=== PATIENT | male | born 2000 | race Caucasian/White ===

== ENCOUNTER 2020-10-21 13:39 | Day surgery (SDC) | payer SELFPAY ==
[2020-10-21] VITALS (11 sets, daily range): BP systolic 111–144; BP diastolic 58–96; PULSE 63–93; RESP 16–20; TEMP 36.2–36.6; O2SAT 70–100; BMI 21.7
--- NOTE | 2020-10-21 13:51 | ED_ITS ---
HPI - Male Genitourinary General: Chief complaint: Urogenital-Male Stated complaint: Testicular pain Time Seen by Provider: 10/21/20 13:42 History of Present Illness: HPI Narrative: The patient is a 20-year-old male who comes to the ER complaining of right testicular pain since 12 PM. He says the right testicle is severely tender and swollen. Denies penile discharge or recent sexual activity. 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 He denies any medical problems or surgeries MD Complaint: testicle pain Onset (ago): hour(s) (2) Location: right testicle Radiation: right testicle Severity: severe Severity scale (1-10): 10 Quality: sharp Relieving factors: none Exacerbating factors: none Associated symptoms: Reports no associated symptoms Review of Systems General: Reports: 10 or more systems reviewed and unremarkable except in HPI and below Const: Denies: fatigue Eyes: Denies: change in vision, blurry vision or eye redness ENMT: Denies: throat pain, swelling of lips/tongue, ear or mastoid pain or nasal congestion Card: Denies: chest pain, palpitations, irregular heart rhythm, edema, dyspnea on exertion or orthopnea Resp: Denies: dyspnea, productive cough or non-productive cough GI: Denies: abdominal pain, diarrhea or GI cramping : Reports: testicular pain; Denies: flank pain, urinary frequency or urinary urgency Musc: Denies: neck pain, back pain, extremity pain, joint pain, joint redness, limited range of motion or muscle weakness Skin/Breast: Denies: rash, pruritus, erythema, skin pain or skin tenderness Neuro: Denies: headache(s), numbness in extremities, weakness in extremities, sensory changes, difficulty walking, dizziness, confusion or Slurred speech present Psych: Denies: anxiety or depression Endo: Denies: polyuria All/Imm: Denies: urticaria, throat swelling or tongue swelling Physical Exam Const: COMMON NORMALS: no acute distress, average body habitus, patient oriented x3, no limitations, healthy appearing, alert and well nourished GENERAL APPEARANCE: cooperative, comfortable, well kempt and well developed ORIENTATION/CONSCIOUSNESS: Yes awake, Yes oriented to person, Yes oriented to place and Yes oriented to time HENMT: COMMON NORMALS: normocephalic, external ears normal and Normal external nose present HEAD & SCALP: normal to inspection and normocephalic NOSE: Normal external nose present EXTERNAL EAR: Yes external ears normal MOUTH: Normal oral and palatal mucosa present THROAT: posterior oropharynx normal Eye: COMMON NORMALS: Equal, round and reactive pupils present and EOMs intact bilaterally GENERAL EYE: appearance normal, both eyes and all related structures PUPIL: Yes Equal, round and reactive pupils present Neck/C-Spine: COMMON NORMALS: full ROM, no lymphadenopathy, no meningeal signs and no JVD GENERAL: Yes normal visual inspection Lymph: LYMPHATIC: no lymphadenopathy noted Chest: COMMONS NORMALS: normal inspection of the chest and normal palpation of entire chest wall Resp: COMMON NORMALS: normal respiratory effort, No retractions, No use of accessory muscles, clear to auscultation bilaterally and percussion normal EFFORT & INSPECTION: Yes able to speak in complete sentences AUSCULTATION: clear to auscultation bilaterally PERCUSSION: percussion normal Cardio: COMMON NORMALS: no JVD, regular rate, regular rhythm, S1 normal heart sound present, S2 normal heart sound present and Peripheral pulses 2+ throughout RATE: regular rate RHYTHM: regular rhythm HEART SOUNDS: S1 normal heart sound present and S2 normal heart sound present PERIPHERAL PULSES: Peripheral pulses 2+ throughout GI: COMMON NORMALS: Normal to inspection, nondistended, normoactive bowel sounds present, Soft to palpation, non-tender and no masses INSPECTION: Yes normal to inspection PALPATION: Yes Soft to palpation : COMMON NORMALS: Yes no CVA tenderness BLADDER/KIDNEY EXAM: Yes no CVA tenderness PENIS: normal penis TESTES: Yes testicular swelling OTHER: Right testicle shortened and severely tender. Likely torsion. left testicle normal Back/Pelvis: COMMON NORMALS: no CVA tenderness, thoracic and lumbar spine normal to inspection, no thoracic nor lumbar tenderness and thoraco-lumbar ROM normal Extremity: COMMON NORMALS: normal to inspection, full ROM, capillary refill normal, no joint enlargement and no pedal edema GENERAL: Yes normal exam except as noted Neuro: COMMON NORMALS: patient oriented x3, CN's II-XII intact bilaterally, moves all extremities, no focal motor deficits, no sensory deficits noted and gait normal SENSORIUM/ORIENTATION: Yes alert, Yes oriented to person, Yes oriented to place and Yes oriented to time MENINGEAL SIGNS: Yes no meningeal signs Psych: COMMON NORMALS: mental status grossly normal, Normal thought process present, cooperative, normal affect and speech normal APPEARANCE: Yes well kempt ATTITUDE: Yes calm SPEECH: Yes normal speech THOUGHT PROCESS: Normal thought process present Skin: COMMON NORMALS: no rashes or lesions noted GENERAL SKIN EXAM: no rashes or lesions noted Course Vital Signs: Vital signs: Vital Signs Temperature 97.3 F L 10/21/20 13:44 Pulse Rate 72 10/21/20 14:16 Respiratory Rate 16 10/21/20 14:16 Blood Pressure 144/84 10/21/20 14:16 Pulse Oximetry 98 10/21/20 14:16 MDM - Male MDM Narrative: Medical decision making narrative: Discussed with Dr. Black who will see him in the ED. Ultrasound pending. 1402: Dr. Black saw in ED. Recommended going to surgery. Admit observation to Dr. Black direct to surgery. 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
--- NOTE | 2020-10-21 14:04 | P.HP_ITS ---
Providers/Chief Complaint Admitting Physician: Wayne Chief Complaint: HERNIA History of Present Illness JUAN C MENA is a healthy 20-year-old male who was bull riding yesterday. 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 No significant injury yesterday but when he woke up at about noon today he had acute onset of severe right testicular pain and extremely acutely abnormal lie of the testicle. Physical exam revealed a high riding testicle with horizontal orientation versus vertical with some bunching of the cord. I attempted a manual detorsion but could not get the testicle to do so. It was recommended that he go to the operating room emergently as soon as a room is available. Review of Systems Const: Denies: fever(s), chills, fatigue or malaise Eyes: Denies: change in vision or blurry vision ENMT: Denies: throat pain or mouth pain Card: Denies: chest pain, palpitations or edema Resp: Denies: dyspnea or productive cough GI: Reports: abdominal pain and nausea; Denies: vomiting : Reports: testicular pain and scrotal swelling Musc: Denies: neck pain, joint redness or joint warmth Skin/Breast: Denies: rash or new lesions Neuro: Denies: confusion, behavioral changes or Slurred speech present Psych: Reports: anxiety (Related to the acute pain); Denies: loss of interest or memory loss Endo: Denies: flushing, hot flashes or heat intolerance Rosalio/Lymph: Denies: easy bruising or easy bleeding All/Imm: Denies: urticaria or itchy eyes Medications/Allergies Home Medications Medication Instructions Recorded Confirmed Last Taken Type No Known Home Medications 10/21/20 10/21/20 Unknown History Allergies Allergy/AdvReac Type Severity Reaction Status Date / Time No Known Allergies Allergy Verified 10/21/20 13:48 PFSH PFSH: Medical History (Updated 10/21/20 @ 15:33 by Ramin Black MD) Knee injury Supplemental PFSH Information: No prior surgeries No prevalent family illnesses 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, 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, 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 Signs Vitals Signs: Last Vital Signs Temp 97.3 F L 10/21/20 13:44 Pulse 63 10/21/20 13:44 Resp 16 10/21/20 13:44 BP 144/73 10/21/20 13:44 Pulse Ox 99 10/21/20 13:44 Weight: Weight last 48 hrs Weight 160 lb Physical Exam Const: COMMON NORMALS: alert and well nourished GENERAL APPEARANCE: well kempt and well developed ORIENTATION/CONSCIOUSNESS: not confused HENMT: HEAD & SCALP: normocephalic and atraumatic Eye: COMMON NORMALS: no scleral icterus CONJUNCTIVA: Yes conjunctivae normal Neck/C-Spine: COMMON NORMALS: full ROM GENERAL: Yes normal visual inspection Lymph: LYMPHATIC: No no lymphadenopathy noted and No lymphadenopathy Resp: COMMON NORMALS: normal respiratory effort EFFORT & INSPECTION: No labored and No Actively coughing Cardio: COMMON NORMALS: no JVD, regular rate, regular rhythm and No murmurs present (Cardio) GI: COMMON NORMALS: Soft to palpation and non-tender : MALE GROIN/PERINEUM EXAM: No ecchymosis and No hernia PENIS: normal penis MEATUS: meatus normal, no meatla discharge and No Blood at meatus present TESTES: Yes high-riding testicle High-riding testicle laterality: right OTHER: Normal left testicle. Bunching of the cord above the right testicle. Very tender. Extremity: COMMON NORMALS: no clubbing, cyanosis or edema OTHER: Normal Gait Neuro: COMMON NORMALS: no focal motor deficits SENSORIUM/ORIENTATION: Yes alert Psych: COMMON NORMALS: mental status grossly normal APPEARANCE: Yes grossly normal and Yes well kempt ATTITUDE: Yes engaged Skin: COMMON NORMALS: no jaundice GENERAL SKIN EXAM: no rashes or lesions noted A&P Assessment and plan (1) Testicular torsion: Acute RIGHT testicular torsion. 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
[2020-10-21] MEDS: sodium chloride 0.9% 1,000 ML 999 ML IV (14:13)
[2020-10-21] MEDS: morphine 4 mg/mL SDV 1 mL IVP (14:14)
[2020-10-21] MEDS: ondansetron 2 mg/ML SDV 2 mL 4 MG IVP (14:15)
[2020-10-21 14:49] LABS: Alanine Aminotransferase 19 U/L (0-41); Albumin Level 4.3 g/dL (3.5-5.2); Alkaline Phosphatase 99 IU/L (40-130); Anion Gap 14.6 (5-19); Aspartate Amino Transferase 32 U/L (0-40); Basophils # 0.1 10^3/uL (0.0-0.1); Basophils % 0.7 %; Blood Urea Nitrogen 18 mg/dL (6-20); Calcium 8.7 mg/dL (8.5-10.5); Carbon Dioxide 24 mmol/L (22-29); Chloride 104 mmol/L (98-107); Creatinine Clr Calc Pharmacy 157.4792; Eosinophils # 0.2 10^3/uL (0.0-0.8); Eosinophils % 2.5 %; Globulin 2.9 g/dL (1.3-4.6); Glomerular Filtration Rate 123.2 mL/min (90-130); Glucose 111 mg/dL (65-115); Hematocrit 44.4 % (42.0-52.0); Hemoglobin 15.6 g/dL (11.7-16.6); Lymphocytes # 1.8 10^3/uL (1.5-6.5); Lymphocytes % 26.4 %; Mean Corpuscular HGB Conc 35.1 g/dL (30.0-36.0); Mean Corpuscular Hemoglobin 32.2 pg (28.0-34.0); Mean Corpuscular Volume 91.5 fL (80-94); Mean Platelet Volume 8.9 fL (7.4-10.4); Monocytes # 0.6 10^3/uL (0.2-0.9); Monocytes % 8.4 %; Neutrophils # 4.17 10^3/uL (1.8-8.0); Neutrophils % 61.7 %; Nucleated Red Blood Cells % 0 %; Osmolality Calculated 291 mOsm/kg (285-295); Platelet Count 230 10^3/cmm (130-400); Potassium 3.6 mmol/L (3.5-5.1); Red Blood Count 4.85 10^6/uL (4.1-5.3); Red Cell Distribution Width 11.8 % (12.1-15.1); Sodium 139 mmol/L (136-145); Total Bilirubin 0.5 mg/dL (0.15-1.2); Total Protein 7.2 g/dL (6.6-8.7); White Blood Count 6.8 10^3/uL (4.5-13.0)
[2020-10-21 14:50] LABS: Lactate (Lactic Acid level) 1.8 mmol/L (0.5-2.2)
--- NOTE | 2020-10-21 15:46 | P.ANESASSM_ITS ---
Pre-Anesthetic Assessment Pre-Anesthetic Assessment: Height/Weight: Height 1.83 m Weight 72.575 kg Temp Pulse Resp BP Pulse Ox 97.2 F L 70 18 111/96 70 L 10/21/20 14:49 10/21/20 14:49 10/21/20 14:49 10/21/20 14:49 10/21/20 14:49 Proposed Procedure: Operation Date: 10/21/20 16:55 Proposed Procedures p Testicular Torsion Repair, exploration with bilateral testicle fixation(Not Applicable) - Ramin Black MD Was Beta Shannon taken within 24 hours: N/A Social: Social History: Alcohol Comment: vapes Exam: Pre-Anes Outpt Exam: alert, oriented x 3, clear to auscultation bilaterally and regular rate & rhythm Airway: Submandibular: WNL Cervical ROM: WNL MP: 2 Dentition: Chipped Additional comments: front tooth chipped left History/ROS: No significant history except as noted and No significant complaints Pulmonary: Pulmonary: None reported CV/HEM: CV/HEM: None reported : : None reported Hepatic: Hepatic: None reported GI: GI: None reported Metabolic: Metabolic: None reported Musc/skel: Musc/skel: None reported Neuropsych: Neuropsych: None reported Anesthetic Plan: ASA status: 2 Anesthesia: Anesthesia Evaluation and General Risk of > 500 ml blood loss (7ml/kg in children): No PFSH Anesthesia PFSH: Medical History (Updated 10/21/20 @ 15:33 by Ramin Black MD) Knee injury Supplemental PFSH Information: No prior surgeries No prevalent family illnesses 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, 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, 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 CBC & Chem 7: 10/21/20 14:15 10/21/20 14:15 Other Labs: Laboratory Results - last 48 hr 10/21/20 10/21/20 10/21/20 14:15 14:15 14:15 WBC 6.8 RBC 4.85 Hgb 15.6 Hct 44.4 MCV 91.5 MCH 32.2 MCHC 35.1 RDW 11.8 L Plt Count 230 MPV 8.9 Neut % (Auto) 61.7 Lymph % (Auto) 26.4 [place] % (Auto) 8.4 Eos % (Auto) 2.5 Baso % (Auto) 0.7 Neut # (Auto) 4.17 Lymph # (Auto) 1.8 [place] # (Auto) 0.6 Eos # (Auto) 0.2 Baso # (Auto) 0.1 Nucleated RBC % (auto) 0 Nucleated RBCs # 0.0 Sodium 139 Potassium 3.6 Chloride 104 Carbon Dioxide 24 Anion Gap 14.6 BUN 18 Creatinine 0.8 GFR Calculation 123.2 Glucose 111 Calculated Osmolality 291 Lactate 1.8 Calcium 8.7 Total Bilirubin 0.5 AST 32 ALT 19 Alkaline Phosphatase 99 Total Protein 7.2 Albumin 4.3 Globulin 2.9 Cardiac Studies: No Data to Display
--- NOTE | 2020-10-21 15:53 | P.OP_ITS ---
Operative Report Date of procedure: October 21, 2020 Pre-op Diagnosis: Right testicular torsion Procedure Done: 1. Scrotal exploration with manual detorsion right testicle 2. Bilateral testicular fixation Pathology: none sent Surgeon: Wayne Anesthesia: General Estimated blood loss: Minimal Urine output: Not measured Complications: None Brief History: Terry is a very pleasant 20-year-old white male who about noon today developed acute onset of right testicular pain with change in lie and bunching of tissue above the testicle. Loss of cremasteric reflex on exam. Was recommended to undergo emergent scrotal exploration detorsion after failure of an attempt to manually detorsed in the emergency department. There was already a patient asleep on the table for me which incurred some delay. We reviewed the possibility of testicular loss and if that was the case the testicle would be removed. Reviewed the pathology of bilaterality meaning that if one could torsed the other could as well and hence the reason to pexed both. Procedure: After emergent evaluation examination and obtaining of informed consent he was t aken to the operating suite on 10/21/2020 where general anesthesia was administered without difficulty after appropriate timeout was performed, SCDs confirmed to be functioning, preoperative antibiotics administered, beta-juan protocol confirmed. Prepped and draped in usual sterile fashion in supine position paying careful attention to avoiding pressure points. The median raphae incision was made over the right testicle which was still quite abnormal and's appearance. Incision was taken down through the skin and subcutaneous tissue through the tunica vaginalis which was opened and the testicle was inspected and found to be torsed. Manual detorsion was conducted. Attention was then directed to the left testicle with an incision through the scrotal septum over the left testicle. The tunica vaginalis was opened and the left testicle was pexed laterally bilaterally with nonabsorbable suture securing the adventitial tissue lateral to the testicle. Attention was then directed back to the right testicle and it was carefully inspected. It was felt to be salvageable with the initial blue color giving way to pinking up diffusely. And for that reason the testicle was spared and was pe xed like the other side. The wound was copiously irrigated and then 3-0 Vicryl was utilized to close the dartos layer and 4-0 Vicryl was utilized to close the skin in a subcuticular fashion with Exofin placed over. Fluff dressings scrotal support were applied. 0.5% Marcaine was instilled into the skin and also a cord block was performed. Tolerated procedure well without complications and was awakened in the operating room and returned to the care of room in stable condition. PLANS: 1. Anticipate discharge from outpatient surgery 2. Follow-up in 2 weeks for postop check sooner for any concerns or questions
--- NOTE | 2020-10-21 16:53 | SUR.PHASEI ---
PT AWAKES EASILY, TAKES OCC ICE CHIPS PT VERBALLY DENIES PAIN AND NAUSEA, VSS , RESP EVEN AND UNLABORED ON RA. SATS 98%
--- NOTE | 2020-10-21 18:09 | ANE.PACU2 ---
Inpatient post-anesthesia follow up: Airway intact: Yes Vital signs: Temperature 97.8 F Pulse Rate [Monito r] 63 Pulse Rate 73 Respiratory Rate 18 Blood Pressure [Le ft Arm] 144/73 Blood Pressure 120/69 Pulse Oximetry 98 Oxygen Delivery Me thod Room Air Oxygen Flow Rate 8 Fraction of Inspir ed Oxygen Hydration adequate: Yes Nausea and vomiting: No Pain level: 4 Mental status: Baseline
== END 2020-10-21 17:51 | disposition home or self-care (01) ==
LOC: ER 14:15 → OPS 14:17
PROVIDERS: Emergency Provider Family Medicine; Visit Provider Urology
PROC: (CPT 54600; principal; 2020-10-21 16:55)
DX: N44.00 Torsion of testis, unspecified (principal); F17.290 Nicotine dependence, other tobacco product, uncomplicated
CPT/HCPCS: 54600; 80053; 83605; 85025; 96365; 96375; J0330; J0690; J1100; J1885; J2270; J2405; J2704; J3010; J3490; J7030